=== PATIENT | male | born 1985 | race Caucasian/White ===

== ENCOUNTER 2017-08-26 10:34 | Emergency (ER) | payer SELFPAY ==
[~2017-08-26] VITALS: Ht 170.2 cm; Wt 5.9 kg
[2017-08-26 13:49] LABS: INFLUENZA TYPE A POSITIVE FOR TYPE A (NEGATIVE); INFLUENZA TYPE B NEGATIVE FOR TYPE B (NEGATIVE)
[2017-08-26 14:00] VITALS: BP 119/60
== END 2017-08-26 14:13 | disposition home or self-care (01) ==
LOC: EMS 10:35
DX: J11.1 Influenza due to unidentified influenza virus with other respiratory manifestations (principal)
CPT/HCPCS: 87804; 99284